=== PATIENT | male | born 1945 | race African-American/Black ===

== ENCOUNTER 2024-05-05 14:55 | Emergency (ER) | payer OTHER ==
[~2024-05-05] VITALS: Ht 167.6 cm; Wt 80.0 kg
[2024-05-05 14:58] VITALS: O2SAT 96
[2024-05-05 16:26] LABS: HEMATOCRIT. 24.5 % (42.0-52.0); MEAN CORPUSCULAR HEMOGLOBIN 43.1 pg (28.0-32.0); MEAN CORPUSCULAR HGB CONC 32.7 g/dL (31.0-37.0); MEAN CORPUSCULAR VOLUME 131.7 fL (80.0-94.0); MEAN PLATELET VOLUME 8.7 fl (7.4-10.4); PLATELET 633 x1000/uL (130-400); RED BLOOD CELL COUNT 1.86 mill/uL (4.7-6.1); RED CELL DISTRIBUTION WIDTH 16.7 % (11.6-14.6); WHITE BLOOD COUNT 4.3 x1000/uL (4.5-11.0)
[2024-05-05 16:30] LABS: ADD RBC MORPHOLOGY YES; DIFFERENTIAL COMMENT 1
[2024-05-05 16:35] LABS: CHLORIDE 107 mEq/L (98-107); INR 1.1; POTASSIUM 4.6 mEq/L (3.5-5.1); PROTHROMBIN TIME 11.8 sec (9.6-11.0); SODIUM 140 mEq/L (136-145)
[2024-05-05 16:36] LABS: CARBON DIOXIDE 28 mEq/L (21-32)
[2024-05-05 16:37] LABS: CALCIUM 9.1 mg/dL (8.7-10.4)
[2024-05-05 16:41] LABS: CREATININE 2.1 mg/dL (0.6-1.3); GLUCOSE 92 mg/dL (70-105); TROPONIN I HIGH SENSITIVITY 9 ng/L (3.0-53); UREA NITROGEN BLOOD 32 mg/dL (9-23)
[2024-05-05 16:51] LABS: ETHANOL BLOOD < 10 mg/dL (<10)
[2024-05-05 16:54] LABS: PLATELET ESTIMATE INCREASED
[2024-05-05 16:55] LABS: ANISOCYTOSIS 1+
[2024-05-05 18:04] LABS: TROPONIN I HIGH SENSITIVITY 11 ng/L (3.0-53)
[2024-05-05 18:55] VITALS: BP 127/60; PULSE 64; RESP 16; TEMP 36.9; O2SAT 96
== END 2024-05-05 20:55 | disposition home or self-care (01) ==
LOC: ER 14:55 → CANBEDREQ 18:33 → ER 20:55
DX: T40.711A Poisoning by cannabis, accidental (unintentional), initial encounter (principal); E11.22 Type 2 diabetes mellitus with diabetic chronic kidney disease; I12.0 Hypertensive chronic kidney disease with stage 5 chronic kidney disease or end stage renal disease; N18.6 End stage renal disease; I67.82 Cerebral ischemia; N40.0 Benign prostatic hyperplasia without lower urinary tract symptoms; Z99.2 Dependence on renal dialysis; E78.5 Hyperlipidemia, unspecified; V89.2XXA Person injured in unspecified motor-vehicle accident, traffic, initial encounter; Y93.89 Activity, other specified; Y92.89 Other specified places as the place of occurrence of the external cause; Y99.8 Other external cause status
CPT/HCPCS: 36415; 71045; 74176; 80048; 80320; 84484; 85025; 86850; 86900; 93005; 99285; G0480

== ENCOUNTER 2024-12-29 13:45 | Emergency (ER) | payer OTHER ==
[~2024-12-29] VITALS: Ht 177.8 cm; Wt 100.0 kg
[2024-12-29 13:51] VITALS: O2SAT 98
[2024-12-29] MEDS: METOCLOPRAMIDE HCL 10MG/2ML VIAL IV ONE (14:15)
[2024-12-29] MEDS: SODIUM CHLORIDE 0.9% 500 ML IV ONE (14:15)
[2024-12-29 15:48] LABS: ADD RBC MORPHOLOGY YES; BASOPHILS % 1.2 % (0.0-2.0); EOSINOPHILS % 2.4 % (0.0-5.0); HEMATOCRIT. 24.3 % (42.0-52.0); HEMOGLOBIN. 8.2 g/dL (14.0-18.0); LYMPHOCYTES % 13.9 % (20.0-50.0); MEAN PLATELET VOLUME 8.8 fl (7.4-10.4); MONOCYTES % 5.8 % (2.0-8.0); NEUTROPHILS % 76.7 % (40.0-76.0); PLATELET 522 x1000/uL (130-400); RED BLOOD CELL COUNT 2.04 mill/uL (4.7-6.1); RED CELL DISTRIBUTION WIDTH 29.3 % (11.6-14.6)
[2024-12-29 15:59] LABS: CREATININE 1.6 mg/dL (0.6-1.3); UREA NITROGEN BLOOD 13 mg/dL (9-23)
[2024-12-29 16:01] LABS: TROPONIN I HIGH SENSITIVITY 9 ng/L (3.0-53)
[2024-12-29 16:11] LABS: PLATELET ESTIMATE INCREASED
[2024-12-29 16:39] VITALS: BP 98/57; PULSE 86; RESP 18; TEMP 36.6; O2SAT 98
== END 2024-12-29 17:01 | disposition home or self-care (01) ==
LOC: ER 13:45
DX: R53.1 Weakness (principal); N18.6 End stage renal disease; E11.22 Type 2 diabetes mellitus with diabetic chronic kidney disease; I13.11 Hypertensive heart and chronic kidney disease without heart failure, with stage 5 chronic kidney disease, or end stage renal disease; N40.0 Benign prostatic hyperplasia without lower urinary tract symptoms; Z88.8 Allergy status to other drugs, medicaments and biological substances; Z99.2 Dependence on renal dialysis
CPT/HCPCS: 99285; 96374; 70450; 71045; 96361; 80048; 83735; 85025; 84484; 36415; J2765; J7040